=== PATIENT | female | born 1995 | race Caucasian/White ===

== ENCOUNTER 2016-05-04 17:04 | Inpatient (IN) ==
[2016-05-04 18:43] LABS: BILIRUBIN URINE NEGATIVE (NEGATIVE); BLOOD URINE 1+ (NEGATIVE); COLOR YELLOW; GLUCOSE URINE NEGATIVE (NEGATIVE); LEUKOCYTES URINE 1+ (NEGATIVE); NITRITE URINE NEGATIVE (NEGATIVE); PH URINE 6.5; PROTEIN URINE 1+(30 mg/dL) mg/dL (NEGATIVE); SP GRAVITY URINE 1.015; UROBILINOGEN URINE 1+(1 mg/dL)
[2016-05-04 18:44] LABS: CLARITY HAZY (CLEAR)
[2016-05-04 18:45] LABS: URINE CULTURE PL NEEDED? YES; URINE EPITHELIAL CELLS <10 /HPF (<10); URINE RBC <10 /HPF (<10)
[2016-05-04 18:46] LABS: URINE SOURCE CLEAN CATCH
--- NOTE | 2016-05-04 18:49 | PROVIDER DOCUMENTATION ---
HPI-Abdominal Pain/GI Problem - General Chief Complaint: N/V/D Stated Complaint: DEHYDRATION Time Seen by Provider: 05/04/16 18:43 Source: patient Allergies/Adverse Reactions: Patient Allergies Allergy/AdvReac Type Severity Reaction Status Date / Time No Known Allergies Allergy Verified 05/04/16 17:44 Home Medications: Home Medication List Medication Instructions Recorded Confirmed Last Taken Type No Home Medications 05/04/16 05/04/16 Unknown History - History of Present Illness-ABD Nature of Presenting Problems: 20 y/o WM c/o N/V/D x 2 days. Pt states started with diarrhea (2-3 episodes) and then ceased, with N/V starting shortly thereafter. Pt states vomit q 30 minutes until 5 PM yesterday, then ceased until 6 AM- states 3-4 episodes of vomiting since. Denies any hematemesis, hematochezia, dark tarry stools. Denies any sick contacts. Pt has had influenza vaccine this year. Denies any questionable meals, cough, fever/chills. Pt was seen at urgent care today and tested for influenza (negative, per pt) and had fever of 101F there. Denies any tylenol/motrin. States abd. pain in midsection, LLQ, RLQ. Radiates into low back, bilat. (soreness). Denies any urinary sxs. Review of Systems - Adult - REVIEW OF SYSTEMS - ADULT Constitutional: reports: no symptoms reported. denies: chills, fever Eyes: reports: no symptoms reported. denies: blurred vision, double vision Ears, Nose, Mouth & Throat: reports: no symptoms reported. denies: ear pain, loose teeth Cardiovascular: reports: no symptoms reported. denies: chest pain, palpitations Respiratory: reports: no symptoms reported. denies: cough, shortness of breath Gastrointestinal: reports: see HPI, abdominal pain, diarrhea, nausea, vomiting. denies: constipation Genitourinary: reports: no symptoms reported. denies: dysuria, frequency, flank pain, hematuria Musculoskeletal: reports: see HPI, back pain. denies: joint pain, joint swelling Integumentary: reports: no symptoms reported. denies: nail changes, rash Neurological: reports: no symptoms reported. denies: numbness, paresthesia Psychiatric: reports: no symptoms reported Endocrine: reports: no symptoms reported. denies: cold intolerance, heat intolerance Hematologic/Lymphatic: reports: no symptoms reported. denies: easy bruising, prolonged bleeding Allergic/Immunologic: reports: no symptoms reported All Other Systems: Reviewed and Negative Past History - Adult - PAST MEDICAL HISTORY-ADULT Review of Records: reports: Nursing Assessment Review, Medications Reviewed LMP: 04/17/16 - PRIOR SURGERIES/PROCEDURES Surgical/Procedure History: reports: none - SOCIAL HISTORY Smoking: denies Alcohol Use Frequency: never Physical Exam-General - PHYSICAL EXAM-ADULT Initial Vital Signs Reviewed: Yes - CONSTITUTIONAL General Appearance: alert, mild distress - EYES Eyes: pink conjunctivae - HEAD, EARS, NOSE, MOUTH & THROAT HENMT: normocephalic/atraumatic, moist mucous membranes, pharynx normal. negative: pharyngeal erythema, tonsillar exudate - NECK Neck: supple, normal inspection, lymphadenopathy (mild, L ant. cervical) - RESPIRATORY Respiratory: lungs clear, normal breath sounds. negative: crackles, rales, rhonchi, stridor, wheezing - CARDIOVASCULAR Cardiovascular: regular rate, rhythm. negative: bradycardia, tachycardia - GASTROINTESTINAL (ABDOMEN) Abdominal Exam: normal bowel sounds, soft, tenderness (LLQ, RLQ, suprapubic). negative: distended, guarding, rigid, Zelaya's sign - MUSCULOSKELETAL Back Exam: normal inspection, no vertebral tenderness, CVA tenderness (L, mild) Extremity: normal gait - SKIN Integumentary: normal color, normal turgor, warm/dry - NEUROLOGIC Neurologic: negative: aphasia - PSYCHIATRIC Psych/Mental Status: normal mood/affect, normal thought content, normal thought process, oriented x 3 Progress - PLAN OF CARE/RESULTS Progress/Plan/Lab Results: Laboratory Tests 05/04/16 05/04/16 05/04/16 18:15 18:15 20:00 WBC RBC Hgb Hct MCV MCH MCHC RDW Std Deviation Plt Count MPV Immature Gran % (Auto) Neut % (Auto) Lymph % (Auto) [place] % (Auto) Eos % (Auto) Baso % (Auto) Immature Gran # (Auto) Neut # (Auto) Lymph # (Auto) [place] # (Auto) Eos # (Auto) Baso # (Auto) Sodium 137 Potassium 3.6 Chloride 98 Carbon Dioxide 16 L Anion Gap 23 BUN 13 Creatinine 0.7 Estimated GFR/1.73 m2 > 60 BUN/Creatinine Ratio 19 Glucose 145 H Calculated Osmolality 277 Calcium 10.1 Total Bilirubin 0.80 AST 14 ALT 13 Alkaline Phosphatase 96 Total Protein 8.3 Albumin 4.8 Globulin 4.0 Albumin/Globulin Ratio 1.0 Amylase 49 Lipase 15 Urine Source CLEAN CATCH Urine Color YELLOW Urine Clarity HAZY A Urine pH 6.5 Ur Specific [place] 1.015 Urine Protein 1+(30 mg/dL) A Urine Ketones 3+(Large) A Urine Blood 1+ A Urine Nitrite NEGATIVE Urine Bilirubin NEGATIVE Urine Urobilinogen 1+(1 mg/dL) Urine Microscopic RBC <10 Urine WBC 1+ A Urine Microscopic WBC 10-20 A Ur Epithelial Cells <10 Urine Bacteria 2+ Urine Glucose NEGATIVE Urine Test NEGATIVE Influenza A (Rapid) Influenza B (Rapid) 05/04/16 05/04/16 20:00 Unknown WBC 12.44 H RBC 5.16 Hgb 14.8 Hct 42.5 MCV 82.4 MCH 28.7 MCHC 34.8 RDW Std Deviation 12.4 Plt Count 293 MPV 10.4 Immature Gran % (Auto) 0.2 Neut % (Auto) 95.5 H Lymph % (Auto) 3.5 L [place] % (Auto) 0.6 L Eos % (Auto) 0.0 Baso % (Auto) 0.2 Immature Gran # (Auto) 0.03 Neut # (Auto) 11.88 H Lymph # (Auto) 0.44 L [place] # (Auto) 0.07 L Eos # (Auto) 0.00 Baso # (Auto) 0.02 Sodium Potassium Chloride Carbon Dioxide Anion Gap BUN Creatinine Estimated GFR/1.73 m2 BUN/Creatinine Ratio Glucose Calculated Osmolality Calcium Total Bilirubin AST ALT Alkaline Phosphatase Total Protein Albumin Globulin Albumin/Globulin Ratio Amylase Lipase Urine Source Urine Color Urine Clarity Urine pH Ur Specific [place] Urine Protein Urine Ketones Urine Blood Urine Nitrite Urine Bilirubin Urine Urobilinogen Urine Microscopic RBC Urine WBC Urine Microscopic WBC Ur Epithelial Cells Urine Bacteria Urine Glucose Urine Test Influenza A (Rapid) NEGATIVE Influenza B (Rapid) NEGATIVE Orders Category Date Time Status Saline Loc DIRECTED Care 05/04/16 18:44 Active NPO Diet 05/04/16 18:[address] ABD/PELVIS W/ IV CONT ONLY [CT] Stat Exams 05/04/16 20:41 Taken AMYLASE [CHEM] Stat Lab 05/04/16 20:00 Completed CBC WITH ELECTRONIC DIFF [HEME] Stat Lab 05/04/16 20:00 Completed COMPREHENSIVE METABOLIC PANEL [CHEM] Stat Lab 05/04/16 20:[address] Stat Lab 05/04/16 Completed LIPASE [CHEM] Stat Lab 05/04/16 20:00 Completed TEST-URINE [PREG] Stat Lab 05/04/16 18:15 Completed UA NIMS W/REFLEX CULT PL [URINALYSIS] Stat Lab 05/04/16 18:15 Completed URINE CULTURE [RM] Routine Lab 05/04/16 18:46 Ordered 0.9% Sodium Chloride Inj [Ns] 1,000 ml Med 05/04/16 18:55 Discontinued IV 999 mls/hr Ondansetron [Zofran] Med 05/04/16 18:55 Discontinued 4 mg IV NOW ONE Zosyn 3.375 gm/Ns IV Q6h Med 05/04/16 22:00 Ordered Piperacil/Tazobact 3.375 gm/Ns [Zosyn 3.375 gm/Ns] 50 ml IV Q6H Vital Signs Temp Pulse Resp BP Pulse Ox 05/04/16 20:13 98.6 F 110 H 18 104/72 98 05/04/16 17:44 100.1 F H 115 H 18 113/78 99 No Known Allergies Allergy (Verified 05/04/16 17:44) No Home Medications 05/04/16 Dietary Diet NPO Start SatMay 05 1843 Laboratory 05/04/16 05/04/16 05/04/16 Unknown 20:00 20:00 WBC 12.44 H RBC 5.16 Hgb 14.8 Hct 42.5 MCV 82.4 MCH 28.7 MCHC 34.8 RDW Std Deviation 12.4 Plt Count 293 MPV 10.4 Immature Gran % (Auto) 0.2 Neut % (Auto) 95.5 H Lymph % (Auto) 3.5 L [place] % (Auto) 0.6 L Eos % (Auto) 0.0 Baso % (Auto) 0.2 Immature Gran # (Auto) 0.03 Neut # (Auto) 11.88 H Lymph # (Auto) 0.44 L [place] # (Auto) 0.07 L Eos # (Auto) 0.00 Baso # (Auto) 0.02 Sodium 137 Potassium 3.6 Chloride 98 Carbon Dioxide 16 L Anion Gap 23 BUN 13 Creatinine 0.7 Estimated GFR/1.73 m2 > 60 BUN/Creatinine Ratio 19 Glucose 145 H Calculated Osmolality 277 Calcium 10.1 Total Bilirubin 0.80 AST 14 ALT 13 Alkaline Phosphatase 96 Total Protein 8.3 Albumin 4.8 Globulin 4.0 Albumin/Globulin Ratio 1.0 Amylase 49 Lipase 15 Urine Source Urine Color Urine Clarity Urine pH Ur Specific [place] Urine Protein Urine Ketones Urine Blood Urine Nitrite Urine Bilirubin Urine Urobilinogen Urine Microscopic RBC Urine WBC Urine Microscopic WBC Ur Epithelial Cells Urine Bacteria Urine Glucose Urine Test Influenza A (Rapid) NEGATIVE Influenza B (Rapid) NEGATIVE 05/04/16 05/04/16 18:15 18:15 WBC RBC Hgb Hct MCV MCH MCHC RDW Std Deviation Plt Count MPV Immature Gran % (Auto) Neut % (Auto) Lymph % (Auto) [place] % (Auto) Eos % (Auto) Baso % (Auto) Immature Gran # (Auto) Neut # (Auto) Lymph # (Auto) [place] # (Auto) Eos # (Auto) Baso # (Auto) Sodium Potassium Chloride Carbon Dioxide Anion Gap BUN Creatinine Estimated GFR/1.73 m2 BUN/Creatinine Ratio Glucose Calculated Osmolality Calcium Total Bilirubin AST ALT Alkaline Phosphatase Total Protein Albumin Globulin Albumin/Globulin Ratio Amylase Lipase Urine Source CLEAN CATCH Urine Color YELLOW Urine Clarity HAZY A Urine pH 6.5 Ur Specific [place] 1.015 Urine Protein 1+(30 mg/dL) A Urine Ketones 3+(Large) A Urine Blood 1+ A Urine Nitrite NEGATIVE Urine Bilirubin NEGATIVE Urine Urobilinogen 1+(1 mg/dL) Urine Microscopic RBC <10 Urine WBC 1+ A Urine Microscopic WBC 10-20 A Ur Epithelial Cells <10 Urine Bacteria 2+ Urine Glucose NEGATIVE Urine Test NEGATIVE Influenza A (Rapid) Influenza B (Rapid) Discussed pt with Dr. Mcgee; he agreed with admission and transfer to for surgery, per Dr. Lopes. Discussed findings with pt and admission. - CT/MRI 1 CT Study: Abdomen, Pelvis Impression: See EMR Report (Acute appendicitis. No definite perforation at this time. -per Dr. Braswell) - CONSULTS/PCP/HOSPITALIST Notification #1 *Consult/PCP/Hospitalist*: Dr. Lopes Time Discussed: 21:40 Reason/Comments: Acute appendicitis Consult Disposition: Admit (Zosyn, NPO, will do surgery in the AM.) Departure - Departure Time of Disposition Order: 21:49 DIAGNOSIS: Acute appendicitis Qualifiers: Acute appendicitis type: unspecified acute appendicitis type Qualified Code(s) : K35.80 - Unspecified acute appendicitis Disposition: ADMITTED INPATIENT 09 Certified Medical Emergency: Emergent Condition: Stable Referrals: Isma Powell MD [Primary Care Provider] - Attestation - Physician/ ONOFRE Attestation Patient care was provided by Advanced Practice Provider:: Yes Advanced Practice Provider:: Shameka Butterfield Advanced Practice Provider documentation review:: The Mid-level provider documentation, treatment plan and medical decision making was reviewed by the physician who agrees with all treatment and medical decision making by the MLP.
[2016-05-04] MEDS ORDERED: NS 1,000 ML IV ONE (18:55)
[2016-05-04] MEDS ORDERED: ZOFRAN IV ONE (18:55)
[2016-05-04 20:07] LABS: BASO% 0.2 % (0.0-0.8); HEMATOCRIT 42.5 % (37.0-47.0); HEMOGLOBIN 14.8 g/dL (12.0-16.0); IMM GRAN# 0.03 X1000 (0.0-0.04); IMM GRAN% 0.2 % (0.0-0.5); LYMPH# 0.44 X1000 (1.2-3.4); LYMPH% 3.5 % (20.5-51.1); MANUAL DIFF NEEDED? NO; MCH 28.7 PG (27-31); MCHC 34.8 g/dL (33-37); MCV 82.4 FL (81-99); MONO# 0.07 X1000 (0.11-0.59); MONO% 0.6 % (1.7-9.3); MPV 10.4 FL (7.4-10.4); NEUT% 95.5 % (42.2-75.2); PLT 293 X1000 (130-400); RBC 5.16 XMIL (4.2-5.4)
[2016-05-04 20:34] LABS: AGAP 23; ALBUMIN 4.8 g/dL (3.5-5.0); ALKALINE PHOSPHATASE 96 U/L (32-104); AMYLASE 49 U/L (20-200); BUN 13 mg/dL (8-22); CALCIUM 10.1 mg/dL (8.8-10.2); CHLORIDE 98 mmol/L (98-107); COSMO 277; GOT 14 U/L (10-30); GPT 13 U/L (10-36); LIPASE 15 U/L (13-60); POTASSIUM 3.6 mmol/L (3.5-5.1); SODIUM 137 mmol/L (136-145); TCO2 16 mmol/L (25-35); TOTAL PROTEIN 8.3 g/dL (6.3-8.3)
[2016-05-04] MEDS ORDERED: TORADOL IV PRN (21:52)
[2016-05-04] MEDS ORDERED: ZOFRAN IV PRN (21:52)
[2016-05-04] MEDS ORDERED: ZOSYN 3.375 GM/NS 50 ML IV SCH (22:00)
[2016-05-04] MEDS ORDERED: NS 1,000 ML IV SCH (22:00)
--- NOTE | 2016-05-04 22:24 | Diag Imaging Result Document ---
PROCEDURE NAME: CT ABD/PELVIS W/ IV CONT ONLY - 05/04/2016 CT ABDOMEN AND PELVIS WITH IV CONTRAST: COMPARISON: None available. FINDINGS: The appendix is markedly dilated measuring up to a centimeter in diameter and there is periappendiceal inflammatory change consistent with acute appendicitis. I can identify no definite periappendiceal abscess and there is no extraluminal free gas identified to indicate a rupture at this time. There is no evidence of bowel obstruction. The remainder of the solid viscera of the abdomen and pelvis and the remainder of the GI tract are essentially unremarkable. IMPRESSION: Acute appendicitis with no definite sign of rupture at this time.
[2016-05-04] MEDS ORDERED: OFIRMEV 1000 MG/ISOTONIC SOLN 100 ML IV ONE (23:31)
[2016-05-05] MEDS ORDERED: ZOFRAN IV PRN (05:05)
[2016-05-05] MEDS ORDERED: TORADOL IV PRN (05:05)
[2016-05-05] MEDS ORDERED: ZOSYN 3.375 GM/NS 50 ML IV SCH (05:30)
[2016-05-05] MEDS ORDERED: NS 1,000 ML IV SCH ×2 (06:00→07:46)
[2016-05-05] MEDS ORDERED: MARCAINE 0.25% PF/EPI 1:200,000 ONE (06:31)
[2016-05-05] MEDS ORDERED: LR 1,000 ML ONE (06:32)
[2016-05-05] MEDS ORDERED: VERSED ONE (06:55)
[2016-05-05] MEDS ORDERED: PEPCID ONE (06:56)
--- NOTE | 2016-05-05 06:56 | HISTORY AND PHYSICAL ---
CHIEF COMPLAINT: Lower abdominal discomfort. HISTORY: This is a 20-year-old, who presented to the [place] ER last night with a less than 24- hour history of some abdominal discomfort associated with some nausea, vomiting and diarrhea. She underwent a CAT scan which showed acute appendicitis without rupture. She does report some hip discomfort recently and some lower back discomfort. Denies any dysuria. PAST HISTORY: Unremarkable. MEDICATIONS: She takes no scheduled medications. ALLERGIES: Has no known drug allergies. PAST SURGICAL HISTORY: Has not had prior surgery. SOCIAL HISTORY: Denies smoking, denies alcohol use. FAMILY HISTORY: Noncontributory. REVIEW OF SYSTEMS: Negative in every subsystem except for GI tract which we mentioned above. PHYSICAL EXAMINATION: VITAL SIGNS: Her temp was a 101.6 degrees last evening. She is afebrile this morning. Heart rate 105, respiratory rate 18, blood pressure 101/53. NECK: No cervical adenopathy. LUNGS: Bilateral breath sounds. HEART: Regular rate and rhythm. ABDOMEN: Soft and mildly tender in the right lower quadrant. Psoas sign is negative. NEUROLOGIC: She is awake and alert. DIAGNOSTICS/LABS: White count was 12,400 yesterday with a left shift. She did have ketones in her urine. Urine test is negative. ASSESSMENT: Acute appendicitis. PLAN: A laparoscopic appendectomy. I have discussed that with her in the presence of her parents. They understand and they agree to proceed.
[2016-05-05] MEDS ORDERED: MORPHINE IV PRN (07:45)
[2016-05-05] MEDS ORDERED: NORCO-10 PO PRN (07:46)
[2016-05-05] MEDS ORDERED: DILAUDID ONE (08:07)
[2016-05-05] MEDS ORDERED: NS 1,000 ML ONE (08:07)
[2016-05-05] MEDS ORDERED: BLISTEX MEDICATED BERRY LIP BALM TOP PRN (08:53)
[2016-05-05] MEDS ORDERED: FENTANYL ONE (10:14)
[2016-05-05] MEDS ORDERED: DIPRIVAN 1% ONE (10:15)
--- NOTE | 2016-05-05 14:29 | OPERATIVE NOTE ---
PROCEDURE DATE: 05/05/2016 PROCEDURE PERFORMED: Laparoscopic appendectomy. SURGEON: Hi Lopes MD. TECHNICAL PROFESSIONAL: Maribel. PREOPERATIVE DIAGNOSIS: Acute appendicitis. POSTOPERATIVE DIAGNOSIS: Acute appendicitis. DESCRIPTION OF PROCEDURE: Satisfactory general endotracheal anesthesia was achieved. The abdomen was prepped and draped in a sterile fashion. We anesthetized the skin at the umbilicus, made a small incision, incised the skin, and used the Optiview technique to enter the abdominal cavity using a 5 trocar. We insufflated through this trocar. Under direct visualization placed a 12 trocar in the lower hypogastrium, 5 trocar in the mid hypogastrium. We placed the patient in Trendelenburg and turned her to the left. We identified the cecum and identified the base of the appendix at the end of the anterior tinea. We grasped the mesoappendix with the padded graspers. We then used a LigaSure to divide the mesoappendix down to the base of the appendix. We introduced the Endo-MYAH contreras cartridge 45 mm long. We stapled and divided the base of the appendix. We placed the appendix within a Pleatman pouch and delivered it out of the abdominal cavity. We looked back. Hemostasis was satisfactory. No purulence was identified. The ovaries both looked normal. The uterus looked normal. We then aspirated what fluid it collected. No other obvious abnormalities were identified. We then flattened the patient and desufflated, removed our trocars. We placed a 2-0 Polysorb fascial stitch in the lower hypogastric trocar site. We then closed the skin at each incision with 4-0 Polysorb subcuticular stitches. Sterile OpSites were applied. She tolerated it well, was sent to the recovery room in satisfactory condition.
[2016-05-05 15:24] VITALS: BP 97/59
[2016-05-07] MEDS ORDERED: ZOFRAN ONE (08:57)
[2016-05-07] MEDS ORDERED: DECADRON ONE (08:57)
[2016-05-07] MEDS ORDERED: XYLOCAINE-MPF 2% ONE (08:57)
[2016-05-07] MEDS ORDERED: LR 2,000 ML ONE (08:57)
[2016-05-07] MEDS ORDERED: TORADOL ONE (08:57)
[2016-05-07] MEDS ORDERED: NEOSTIGMINE ONE (08:57)
[2016-05-07] MEDS ORDERED: ROBINUL ONE (08:57)
[2016-05-07] MEDS ORDERED: ZEMURON ONE (08:57)
[2016-05-07] MEDS ORDERED: QUELICIN (DOSE) ONE (08:57)
== END 2016-05-05 17:43 | disposition home or self-care (01) | DRG 343 ==
LOC: P.ED 17:04 → 4N 22:39
PROVIDERS: ADMIT Surgery; ATTEND Surgery
PROC: 0DTJ4ZZ Resection of Appendix, Percutaneous Endoscopic Approach (ICD-10-PCS; principal; 2016-05-05 07:00)
DX: K35.80 Unspecified acute appendicitis (principal)
CPT/HCPCS: 74177; 80053; 81001; 81025; 82150; 83690; 85025; 87088; 87804; 88304; 96361; 96365; 96367; 96375; J0131; J0330; J1100; J1170; J1885; J2250; J2405; J2543; J3010; J7030; J7120; Q9967; J2710; S0028